=== PATIENT | female | born 1975 | race Caucasian/White ===

== ENCOUNTER 2021-02-08 17:53 | Emergency (ER) | payer MEDICARE, MEDICAID, SELFPAY ==
--- NOTE | 2021-02-08 17:55 | ED.SKABFB ---
HPI - Skin/Abscess/Foreign Bdy General Chief complaint: Skin/Abscess/Foreign Body Stated complaint: facial bumps Time Seen by Provider: 02/08/21 18:23 Source: patient and RN notes reviewed Mode of arrival: ambulatory Limitations: no limitations History of Present Illness HPI narrative: 45-year-old female presents with concern for infected acne. She has a history of acne, has a history of staph infections related to her acne. Reports she picks at her wounds. Reports she sees a health administrator, has been on several courses of Bactrim this past year. Reports she last took Bactrim 2 months ago. Reports several days ago she noticed 3 spots on her face that are red, tender, swollen with purulent drainage. She denies any systematic symptoms such as fever, malaise, body aches. MD complaint: rash Related Data Home Medications Medication Instructions Recorded Confirmed alprazolam 2 mg PO BID 10/15/19 02/08/21 baclofen 10 mg PO BID PRN 10/15/19 02/08/21 sertraline 100 mg PO EVERY OTHER DAY 10/15/19 02/08/21 acetaminophen-codeine 2 tablet PO BID 02/08/21 02/08/21 clindamycin phosphate 1 applic TOPICAL BID 02/08/21 02/08/21 phentermine 37.5 mg PO DAILY 02/08/21 02/08/21 sertraline 150 mg PO EVERY OTHER DAY 02/08/21 02/08/21 silver sulfadiazine 1 applic TOPICAL BID PRN 02/08/21 02/08/21 spironolactone 150 mg PO BID 02/08/21 02/08/21 Allergies Allergy/AdvReac Type Severity Reaction Status Date / Time levofloxacin Allergy Unknown Rash Verified 02/08/21 18:20 Penicillins Allergy Unknown Hives Verified 02/08/21 18:20 Review of Systems Review of Systems: Narrative: CONSTITUTIONAL: Denies malaise, chills, sweats, or fever. EYES: Denies visual changes, redness, or discharge. ENT: Denies swollen lips, swollen tongue CARDIOVASCULAR: Denies chest pain, palpitations, or edema. RESPIRATORY: Denies cough or dyspnea. SKIN: Reports infected acne pustules on her face MUSCULOSKELETAL: Denies myalgia. All systems reviewed & are unremarkable except as noted in HPI and below PMFSH Past Medical History Medical History (Updated 02/08/21 @ 18:36 by Eda Christensen NP) Anxiety Arthritis Asthma Depression Herpes Social History Social History (Updated 10/15/19 @ 20:09 by MICHAEL Damon) Smoking status: Current every day smoker Alcohol intake: never Substance use: never Gender identity (if verbalized by the patient): Female Comments At time of signature, agree with nursing past medical, surgical, social and family history. There is no relevant family history pertinent to the presenting complaint Exam Narrative: Exam Narrative: GENERAL: Well-appearing, well-nourished, and in no acute distress. HEAD: Normocephalic, atraumatic. EYES: PERRLA, conjunctivae clear, and EOMI. ENT: Mucous membranes moist. Oropharynx without edema, erythema or lesions. NECK: Supple. No lymphadenopathy CHEST: Clear to auscultation. No respiratory distress. HEART: Regular rate and rhythm. SKIN: Warm, dry. 3 discrete patches of scaly edematous erythema, patient has make-up over wounds. Mild induration, edema surrounding wounds less than 1.5 cm each. Tender to touch NEURO: Alert and oriented x3. PSYCH: Normal mood and affect Course Course Emergency Course: Patient is aware of diagnosis, understands and agrees to treatment plan. Anticipatory guidance given. Patient agrees to follow-up as directed and is aware of reasons to seek care at the emergency department. Portions of this record may have been created with voice recognition software Vital Signs Vital signs: Vital Signs Temperature 97.8 F 02/08/21 18:25 Pulse Rate 98 02/08/21 18:25 Respiratory Rate 16 02/08/21 18:25 Blood Pressure 117/61 02/08/21 18:25 Pulse Oximetry 100 02/08/21 18:25 Temperature 97.8 F 02/08/21 18:25 Pulse Rate 98 02/08/21 18:25 Respiratory Rate 16 02/08/21 18:25 Blood Pressure 117/61 02/08/21 18:25 Pulse Oximetry 100 02/08/21 18:2
[2021-02-08 18:25] VITALS: BP 117/61; PULSE 98; RESP 16; TEMP 36.6; O2SAT 100
== END 2021-02-08 18:47 | disposition home or self-care (01) ==
PROVIDERS: Emergency Provider Nurse Practitioner
DX: L08.9 Local infection of the skin and subcutaneous tissue, unspecified (principal); B96.89 Other specified bacterial agents as the cause of diseases classified elsewhere; Z86.14 Personal history of Methicillin resistant Staphylococcus aureus infection; F41.9 Anxiety disorder, unspecified; M19.90 Unspecified osteoarthritis, unspecified site; J45.909 Unspecified asthma, uncomplicated; F32.9 Major depressive disorder, single episode, unspecified; F17.200 Nicotine dependence, unspecified, uncomplicated
CPT/HCPCS: 99213; G0463

== ENCOUNTER 2021-11-15 13:37 | Emergency (ER) | payer MEDICARE, MEDICAID, SELFPAY ==
[2021-11-15 13:54] VITALS: BP 107/76; PULSE 103; RESP 16; TEMP 36.5; O2SAT 98
--- NOTE | 2021-11-15 14:15 | ED.WOUNDLAC ---
HPI - Wound/Laceration General Chief Complaint: Skin/Abscess/Foreign Body Stated Complaint: left leg pain/facial acne Time Seen by Provider: 11/15/21 14:05 Source: patient and RN notes reviewed Mode of arrival: ambulatory Limitations: no limitations Related Data Allergies Allergy/AdvReac Type Severity Reaction Status Date / Time levofloxacin Allergy Unknown Rash Verified 11/15/21 13:43 Penicillins Allergy Unknown Hives Verified 11/15/21 13:43 [facility] Past Medical History Medical History (Updated 11/15/21 @ 14:20 by Roselia Blanco, MICHAEL, ) Anxiety Arthritis Asthma Depression Herpes Social History Social History (Updated 10/15/19 @ 20:09 by Audrey Spencer [facility]) Smoking status: Current every day smoker Alcohol intake: never Substance use: never Gender identity (if verbalized by the patient): Female Exam Narrative: GENERAL: Well-appearing, well-nourished, and in no acute distress. HEAD: Normocephalic, atraumatic. EYES: EOMI. No redness or drainage. Conjunctivae normal. ENT: Mucous membranes pink and moist. NECK: Normal AROM. CHEST: No respiratory distress. EXTREMITIES: Normal range of motion. No edema. SKIN: Warm, dry. Capillary refill normal. Normal skin turgor. Flattened, dry abscess to the right lower jawline. No fluctuance any longer. Mildly tender to palpation. Patient has a lot of make-up on, so is difficult to tell whether or not there is any erythema. Pharmacy patient has erythematous, scattered maculopapular rash around the left ankle that is mildly tender to palpation around the posterior ankle. There is some mild edema about the ankle. Distal sensation intact. Capillary refill normal. Pedal pulse normal. Full range of motion of the ankle. NEURO: No focal deficits. Alert and oriented x3. Gait steady. PSYCH: Normal affect. No signs of depression or anxiety. Course Vital Signs Vital signs: Vital Signs Temperature 97.7 F 11/15/21 13:54 Pulse Rate 103 H 11/15/21 13:54 Respiratory Rate 16 11/15/21 13:54 Blood Pressure 107/76 11/15/21 13:54 Pulse Oximetry 98 11/15/21 13:54 Temperature 97.7 F 11/15/21 13:54 Pulse Rate 103 H 11/15/21 13:54 Respiratory Rate 16 11/15/21 13:54 Blood Pressure 107/76 11/15/21 13:54 Pulse Oximetry 98 11/15/21 13:54 Reviewed MDM - Wound/Laceration Differential Diagnosis Differential diagnosis: Likely abscess and other (Contact dermatitis, Acne, cellulitis) Critical Care Time Critical Care Time Critical Care Time: No Discharge Plan Discharge Clinical Impression: Abscess of skin or subcutaneous tissue Qualifiers: Site of cutaneous abscess: face Qualified Code(s): L02.01 - Cutaneous abscess of face Cellulitis Qualifiers: Site of cellulitis: face Qualified Code(s): L03.211 - Cellulitis of face Contact dermatitis Qualifiers: Contact dermatitis type: unspecified Contact dermatitis trigger: unspecified trigger Qualified Code(s): L25.9 - Unspecified contact dermatitis, unspecified cause Patient Disposition: Home, Self-Care Condition: Stable Instructions: Antibiotic Form, Contact Dermatitis (DC), Cellulitis (ED), Abscess (ED) Additional Instructions: Take the Bactrim as prescribed until gone. Take Benadryl at home for the rash on your ankle. Follow-up with your doctor in 3 to 4 days if symptoms are not improving. Patient Language: Georgian Prescriptions: New sulfamethoxazole-trimethoprim [Bactrim DS] 800-160 mg tablet 1 tablet PO Q12H 10 Days Qty: 20 RF: 0 Follow-up/Referrals: UNKNOWN,DOCTOR [Primary Care Provider] - Time of Disposition: 14:20
== END 2021-11-15 14:25 | disposition home or self-care (01) ==
PROVIDERS: Emergency Provider Nurse Practitioner
DX: L02.01 Cutaneous abscess of face (principal); L03.211 Cellulitis of face; L25.9 Unspecified contact dermatitis, unspecified cause; F17.200 Nicotine dependence, unspecified, uncomplicated; M19.90 Unspecified osteoarthritis, unspecified site; J45.909 Unspecified asthma, uncomplicated
CPT/HCPCS: 99213; G0463

== ENCOUNTER 2022-03-28 13:56 | Emergency (ER) | payer MEDICARE, MEDICAID, SELFPAY ==
[2022-03-28 14:07] VITALS: BP 126/82; PULSE 101; RESP 16; TEMP 37.3; O2SAT 98
--- NOTE | 2022-03-28 14:22 | ED.DENTAL ---
HPI - Dental/Oral General Chief complaint: Dental/Oral Stated complaint: blisters in mouth Time Seen by Provider: 03/28/22 14:22 Source: patient Mode of arrival: ambulatory Limitations: no limitations Related Data Allergies Allergy/AdvReac Type Severity Reaction Status Date / Time levofloxacin Allergy Unknown Rash Verified 03/28/22 14:22 Penicillins Allergy Unknown Hives Verified 03/28/22 14:22 [facility] Past Medical History Medical History (Updated 11/16/21 @ 00:00 by Luci Kamara) Anxiety Arthritis Asthma Depression Herpes Social History Social History (Updated 10/15/19 @ 20:09 by Audrey Spencer, [employer]) Smoking status: Current every day smoker Alcohol intake: never Substance use: never Gender identity (if verbalized by the patient): Female Course Vital Signs Vital signs: Vital Signs Temperature 37.3 C 03/28/22 14:07 Pulse Rate 101 H 03/28/22 14:07 Respiratory Rate 16 03/28/22 14:07 Blood Pressure 126/82 03/28/22 14:07 Pulse Oximetry 98 03/28/22 14:07 Temperature 37.3 C 03/28/22 14:07 Pulse Rate 101 H 03/28/22 14:07 Respiratory Rate 16 03/28/22 14:07 Blood Pressure 126/82 03/28/22 14:07 Pulse Oximetry 98 03/28/22 14:07
--- NOTE | 2022-03-28 14:33 | ED.SKABFB ---
HPI - Skin/Abscess/Foreign Bdy General Chief complaint: Skin/Abscess/Foreign Body Stated complaint: blisters in mouth Time Seen by Provider: 03/28/22 14:22 Source: patient Mode of arrival: ambulatory Limitations: no limitations History of Present Illness HPI narrative: 46-year-old female presents with complaint of itchy red bumps to back of neck and bilateral lower legs. Reports history of staph infection multiple times. States yesterday 2 spots on the back of her neck blistered and she was able to pop them open to drain. Denies fever chills. All systems reviewed and negative except as noted above. Related Data Home Medications Medication Instructions Recorded Confirmed valacyclovir 500 mg PO DAILY 03/28/22 03/28/22 Allergies Allergy/AdvReac Type Severity Reaction Status Date / Time levofloxacin Allergy Unknown Rash Verified 03/28/22 14:22 Penicillins Allergy Unknown Hives Verified 03/28/22 14:22 Review of Systems Review of Systems: CONSTITUTIONAL: Denies fever, chills, or sweats. EYES: Denies visual changes, redness, or discharge. ENT: Denies rhinorrhea, congestion, sore throat, or otalgia. CARDIOVASCULAR: Denies chest pain, palpitations, or edema. RESPIRATORY: Denies cough or dyspnea. GASTROINTESTINAL: Denies abdominal pain, nausea, vomiting, or diarrhea. GENITOURINARY: Denies dysuria or hematuria. SKIN: Reports itchy rash. MUSCULOSKELETAL: Denies back pain, joint pain, or myalgia. NEUROLOGIC: Denies headache, numbness, or weakness. PSYCHIATRIC: Denies anxiety or depression. All other systems reviewed are negative, except as documented in HPI. [facility] Past Medical History Medical History (Updated 03/28/22 @ 14:38 by Carrol Rodriguez NP) Anxiety Arthritis Asthma Depression Herpes Social History Social History (Updated 10/15/19 @ 20:09 by Audrey Spencer, [employer]) Smoking status: Current every day smoker Alcohol intake: never Substance use: never Gender identity (if verbalized by the patient): Female Comments At time of signature, agree with nursing past medical, surgical, social and family history. There is no relevant family history pertinent to the presenting complaint. Exam Narrative: GENERAL: This is a well-nourished, well-developed patient, in no apparent distress. HEAD: normocephalic, atraumatic. EYES: PERRL. Sclera clear/white. Vision is grossly intact. EARS: External ears normal NOSE: External nose normal NECK: Neck supple, non-tender without lymphadenopathy, masses or thyromegaly. CARDIOVASCULAR: Regular rate and rhythm without murmurs, gallops, or rubs. RESPIRATORY: Clear to auscultation. Breath sounds equal bilaterally. No wheezes, rales, or rhonchi. SKIN: warm, Dry, good texture and turgor. Multiple erythematous skin lesions to bilateral lower legs with scabbing and swelling. No fluctuance or drainage. Similar lesions, 2 or 3, to posterior neck. NEURO: awake, alert, and oriented to person, place and time. There were no obvious focal neurologic abnormalities. EXTREMITIES: Normal range of motion to all extremities. Course Course Level of Care: Express Care Visit Vital Signs Vital signs: Vital Signs Temperature 37.3 C 03/28/22 14:07 Pulse Rate 101 H 03/28/22 14:07 Respiratory Rate 16 03/28/22 14:07 Blood Pressure 126/82 03/28/22 14:07 Pulse Oximetry 98 03/28/22 14:07 Temperature 37.3 C 03/28/22 14:07 Pulse Rate 101 H 03/28/22 14:07 Respiratory Rate 16 03/28/22 14:07 Blood Pressure 126/82 03/28/22 14:07 Pulse Oximetry 98 03/28/22 14:07 Reviewed MDM - Skin/Abscess/Foreign Bdy MDM Narrative Medical decision making narrative: We will treat for staph infection due to multiple erythematous skin lesions and patient's past medical history of staph infection. Patient is aware of diagnosis, understands and agrees to treatment plan. Anticipatory guidance given. Patient agrees to follow-up as directed and is aware of reasons to seek c
== END 2022-03-28 14:40 | disposition home or self-care (01) ==
PROVIDERS: Emergency Provider Nurse Practitioner Family
DX: L08.9 Local infection of the skin and subcutaneous tissue, unspecified (principal); B95.8 Unspecified staphylococcus as the cause of diseases classified elsewhere; F17.200 Nicotine dependence, unspecified, uncomplicated
CPT/HCPCS: 99213; G0463

== ENCOUNTER 2022-04-26 16:38 | Emergency (ER) | payer MEDICARE, MEDICAID, SELFPAY ==
[2022-04-26 16:49] VITALS: BP 103/72; PULSE 72; RESP 20; TEMP 36.3; O2SAT 100
--- NOTE | 2022-04-26 17:07 | ED.SKABFB ---
HPI - Skin/Abscess/Foreign Bdy General Chief complaint: Skin/Abscess/Foreign Body Stated complaint: Staff Infection Time Seen by Provider: 04/26/22 17:08 Source: patient and RN notes reviewed Mode of arrival: ambulatory Limitations: no limitations History of Present Illness HPI narrative: 46-year-[facility] finishing her round of Bactrim for her staph infections. Still concerned over open red round lesions 1 on her back on her spine is swollen and warm to touch, patient reports pus draining from it. Also states the areas on her face are not healing. Not follow-up with dermatology due to cost. Related Data Home Medications Medication Instructions Recorded Confirmed valacyclovir 500 mg tablet 500 mg PO DAILY 03/28/22 04/26/22 Allergies Allergy/AdvReac Type Severity Reaction Status Date / Time levofloxacin AdvReac Mild Rash Verified 04/26/22 16:46 Penicillins AdvReac Mild Hives Verified 04/26/22 16:46 Review of Systems Review of Systems: All systems reviewed & are unremarkable except as noted in HPI and below Constitutional: Constitutional: Reports no additional constitutional complaints, Denies chills and Denies fever(s) Eyes: Eyes: Reports no additional eye complaints ENT: Reports system reviewed and no additional complaints, except as documented Cardiovascular: Cardiovascular: Reports no additional cardiovascular complaints Respiratory: Respiratory: Reports no additional respiratory complaints Gastrointestinal: Gastrointestinal: Reports no additional gastrointestinal complaints Musculoskeletal: Musculoskeletal: Reports no additional musculoskeletal complaints Integumentary/Breasts: Skin/Breast: Reports as per HPI and Reports erythema Neurologic: Reports system reviewed and no additional complaints, except as documented Psychiatric: Psychiatric: Reports no additional psychiatric complaints Allergic/Immunologic: Allergic/Immunologic: Reports no additional allergic/immunologic complaints [facility] Past Medical History Medical History Anxiety Arthritis Asthma Depression Herpes Social History Social History (Updated 04/26/22 @ 17:13 by Eda Chicas APRN) Smoking packs per day: 1 Smoking cigarettes per day: 20.0 Smoking status: Current every day smoker Alcohol intake: never Substance use: never Substance use type: marijuana Gender identity (if verbalized by the patient): Female Comments At the time of my signature, I reviewed and agree with the nursing past medical, surgical, social, and family history. There is no relevant family history pertinent to the patient complaint. Exam Const: General: no acute distress, alert and ill appearing chronically Nutritional Appearance: thin Orientation/consciousness: patient oriented x3 Limitations: no limitations HENMT: Head: normal to inspection Ears: external ears normal General nose exam: Normal external nose present Mouth: Yes moist mucous membranes Teeth and gingiva: poor dentition Eyes: Pupils: Equal, round and reactive pupils present Neck: Neck: normal visual inspection, no lymphadenopathy and no meningeal signs Chest: Chest palpation & inspection: normal inspection of the chest Resp: Effort & Inspection: normal respiratory effort and no use of accessory muscles Auscultation: clear to auscultation bilaterally, no crackles, no rales, no rhonchi and no wheezes Cardio: Rate: regular rate Rhythm: regular rhythm GI: GI Palp: Yes Soft to palpation and No Tenderness to palpation present (GI) : General: Yes no CVA tenderness Back/Spine/Pelvis: Back: no CVA tenderness Skin: General skin exam: normal color Rashes: no rashes Other: Multiple scabbed over areas without redness to the face. 7 open areas to the upper back/neck area, 1 over her spine, T1 1.5 centimeters in diameter, raised and warm. All areas the scabs have been off. Neuro: Ge
== END 2022-04-26 17:15 | disposition home or self-care (01) ==
PROVIDERS: Emergency Provider Nurse Practitioner
DX: L03.312 Cellulitis of back [any part except buttock and flank] (principal); M19.90 Unspecified osteoarthritis, unspecified site; J45.909 Unspecified asthma, uncomplicated; F41.9 Anxiety disorder, unspecified
CPT/HCPCS: 99213; G0463

== ENCOUNTER 2023-08-13 16:36 | Emergency (ER) | payer MEDICARE, MEDICAID, SELFPAY ==
[2023-08-13 17:05] VITALS: BP 111/82; PULSE 90; RESP 16; TEMP 36.5; O2SAT 98
[2023-08-13 17:07] VITALS: BP 111/82; PULSE 90; RESP 16; TEMP 36.5; O2SAT 98
--- NOTE | 2023-08-13 17:17 | ED.GENADULT ---
HPI - General Adult General Chief complaint: Wound/Laceration Stated complaint: Rash/Vomiting/Headache Time Seen by Provider: 08/13/23 17:18 Source: patient, RN notes reviewed and old records reviewed Mode of arrival: ambulatory Limitations: no limitations History of Present Illness HPI narrative: 47-year-old female presents to the [facility] with skin complaints. Patient has multiple scabbed over and open areas, currently not draining to her face, chest and bilateral arms. Area between breasts measure 1-1/2 x 1/2 cm. No fluctuance area, warm to touch. Patient states that she does pick her skin. Has a history of MRSA. Related Data Home Medications Medication Instructions Recorded Confirmed alprazolam 0.5 mg tablet mg 08/13/23 duloxetine 30 mg capsule,delayed mg PO 08/13/23 release famciclovir 250 mg tablet mg 08/13/23 08/13/23 medroxyprogesterone 150 mg/mL mg IM 08/13/23 intramuscular syringe spironolactone 100 mg tablet mg 08/13/23 Allergies Allergy/AdvReac Type Severity Reaction Status Date / Time levofloxacin AdvReac Mild Rash Verified 08/13/23 17:06 Penicillins AdvReac Mild Hives Verified 08/13/23 17:06 Review of Systems Review of Systems: All systems reviewed & are unremarkable except as noted in HPI and below Constitutional: Constitutional: Reports no additional constitutional complaints Eyes: Eyes: Reports no additional eye complaints ENT: Reports system reviewed and no additional complaints, except as documented Cardiovascular: Cardiovascular: Reports no additional cardiovascular complaints, Denies chest pain and Denies dyspnea Respiratory: Respiratory: Reports no additional respiratory complaints, Denies chest congestion, Denies cough and Denies dyspnea Gastrointestinal: Gastrointestinal: Reports no additional gastrointestinal complaints, Denies abdominal pain, Denies nausea and Denies vomiting Musculoskeletal: Musculoskeletal: Reports no additional musculoskeletal complaints Integumentary/Breasts: Skin/Breast: Reports as per HPI Neurologic: Reports system reviewed and no additional complaints, except as documented Psychiatric: Psychiatric: Reports no additional psychiatric complaints Allergic/Immunologic: Allergic/Immunologic: Reports no additional allergic/immunologic complaints [facility] Past Medical History Medical History Anxiety Arthritis Asthma Depression Herpes Social History Social History (Reviewed 08/13/23 @ 21:36 by KIMBER Funk Smoking packs per day: 1 Smoking cigarettes per day: 20.0 Smoking status: Current every day smoker Alcohol intake: never Substance use: never Substance use type: marijuana Gender identity (if verbalized by the patient): Female Comments At the time of my signature, I reviewed and agree with the nursing past medical, surgical, social, and family history. There is no relevant family history pertinent to the patient complaint. Exam Const: General: cooperative, healthy appearing, comfortable, no acute distress, well developed, alert and well nourished Nutritional Appearance: well nourished Orientation/consciousness: patient oriented x3 Limitations: no limitations HENMT: Head: normal to inspection Ears: hearing grossly normal bilaterally and external ears normal Face/Nose/Sinus: Normal external nose present, Normal nares present, Normal nasal mucous membranes and turbinates present, normal facial exam and face symmetric Face and sinus: normal facial exam and face symmetric Mouth: Yes Normal oral and palatal mucosa present, Yes lip normal and Yes moist mucous membranes Eyes: General: appearance normal, both eyes and all related structures Alignment and Position: alignment normal Periorbital: periorbital findings normal Pupils: Equal, round and reactive pupils present EOM: EOMs intact bilaterally Neck: Neck: normal visual inspection, full ROM, no lymphadenopathy a
== END 2023-08-13 17:37 | disposition home or self-care (01) ==
PROVIDERS: Emergency Provider Nurse Practitioner
DX: L03.313 Cellulitis of chest wall (principal); M19.90 Unspecified osteoarthritis, unspecified site; J45.909 Unspecified asthma, uncomplicated; F17.210 Nicotine dependence, cigarettes, uncomplicated; Z86.14 Personal history of Methicillin resistant Staphylococcus aureus infection
CPT/HCPCS: 99213; G0463

== ENCOUNTER 2024-11-29 17:42 | Emergency (ER) | payer MEDICARE, MEDICAID, SELFPAY ==
--- NOTE | 2024-11-29 17:44 | ED.SKABFB ---
HPI - Skin/Abscess/Foreign Bdy General Chief complaint: Skin/Abscess/Foreign Body Stated complaint: Rash Time Seen by Provider: 11/29/24 18:09 Source: patient and RN notes reviewed Mode of arrival: ambulatory Limitations: no limitations History of Present Illness HPI narrative: 49-year-old female presents with concern for infected cystic acne. Reports spots on her face have become red, inflamed has purulent drainage. She denies fever, aches, chills, sweats. Reports history of similar problems in the past. MD complaint: rash Related Data Home Medications ?Medication ?Instructions ?Recorded ?Confirmed ?Last Taken ?Type alprazolam 0.5 mg tablet mg 08/13/23 Unknown History duloxetine 30 mg capsule,delayed mg PO 08/13/23 Unknown History release famciclovir 250 mg tablet mg 08/13/23 08/13/23 Unknown History medroxyprogesterone 150 mg/mL mg IM 08/13/23 Unknown History intramuscular syringe spironolactone 100 mg tablet mg 08/13/23 Unknown History Allergies Allergy/AdvReac Type Severity Reaction Status Date / Time levofloxacin AdvReac Mild Rash Verified 11/29/24 17:44 Penicillins AdvReac Mild Hives Verified 11/29/24 17:44 Review of Systems Review of Systems: CONSTITUTIONAL: Denies malaise, chills, sweats, or fever. EYES: Denies redness, or discharge. ENT: Denies rhinorrhea, congestion, swollen lips, swollen tongue CARDIOVASCULAR: Denies chest pain, palpitations, or edema. RESPIRATORY: Denies cough or dyspnea. GASTROINTESTINAL: Denies abdominal pain, nausea, vomiting SKIN: Reports infected cystic acne MUSCULOSKELETAL: Denies joint pain or myalgia. NEUROLOGIC: Denies headache. All systems reviewed & are unremarkable except as noted in HPI and below PMFSH Past Medical History Medical History Anxiety Arthritis Asthma Depression Herpes Social History Social History Smoking packs per day: 1 Smoking cigarettes per day: 20.0 Smoking status: Current every day smoker Alcohol intake: never Substance use: never Substance use type: marijuana Gender identity (if verbalized by the patient): Female Comments At time of signature, agree with nursing past medical, surgical, social and family history. There is no relevant family history pertinent to the presenting complaint Exam Narrative: GENERAL: Well-appearing, well-nourished, and in no acute distress. HEAD: Normocephalic, atraumatic. EYES: PERRLA, conjunctivae clear, and EOMI. ENT: Mucous membranes moist. Oropharynx without edema, erythema or lesions. NECK: Supple. No lymphadenopathy CHEST: Clear to auscultation. No respiratory distress. HEART: Regular rate and rhythm. SKIN: Warm, dry. Patches of erythematous to raise papules noted to the face with no purulent drainage NEURO: Alert and oriented x3. PSYCH: Normal mood and affect Course Course Emergency Course: Patient is aware of diagnosis, understands and agrees to treatment plan. Anticipatory guidance given. Patient agrees to follow-up as directed and is aware of reasons to seek care at the emergency department. Portions of this record may have been created with voice recognition software Level of Care: Express Care Visit Vital Signs Vital signs: Reviewed. MDM - Skin/Abscess/Foreign Bdy MDM Narrative Medical decision making narrative: Does not appear at this time to be erythema multiforme, bullous, SJS, TEN; no evidence at this time to suggest RMSF, endocarditis or Lyme disease; patient looks well, nontoxic and is tolerating oral intake; no neurologic signs or symptoms; no headache, photophobia or neck pain; afebrile; appropriate for initial outpatient treatment; discussed the importance of follow-up, patient agrees; question, viral exanthema, contact dermatitis, allergic dermatitis, eczema, urticaria, [ xx ]. No soft palate or uvula edema, no tongue, lip edema or other mucosal involvement, no respiratory compromise, no stridor, no wheezing, no wheezing, no history of syncope, no hypotension, no nausea, vomiting, or diarrhea. Instructed patient to go to nearest ER immediately for any worsening symptoms including but not limited to: fever, spreading rash, pain, sore throat, headache, dizziness, chest pain, trouble breathing, or any symptoms concerning to the patient. Critical Care Time Critical Care Time Critical Care Time: No Discharge Plan Discharge Clinical Impression: Bacterial skin infection Patient Disposition: Home, Self-Care Condition: Stable Instructions: Antibiotic Form, General Patient Instructions Additional Instructions: Please follow up with your Primary Care Doctor for further evaluation. Apply moist heat 3-4 times daily for 10-15 minutes. Take Motrin 600mg every 8 hours with food for pain. Please take Antibiotics as directed. If you experience any worsening redness, swelling, streaking (red lines), fever or chills please go to the ER Patient Language: [place] Island[place] Prescriptions: New clindamycin HCl 300 mg capsule 300 mg PO Q8H 7 Days Qty: 21 0RF No Action spironolactone 100 mg tablet alprazolam 0.5 mg tablet famciclovir 250 mg tablet medroxyprogesterone 150 mg/mL syringe IM duloxetine 30 mg capsule,delayed release(DR/EC) PO Follow-up/Referrals: UNKNOWN,DOCTOR [Non-Staff] - Time of Disposition: 18:08
[2024-11-29 17:50] VITALS: BP 130/75; PULSE 102; RESP 16; TEMP 36.9; O2SAT 100
== END 2024-11-29 18:15 | disposition home or self-care (01) ==
PROVIDERS: Emergency Provider Nurse Practitioner
DX: L08.89 Other specified local infections of the skin and subcutaneous tissue (principal); B96.89 Other specified bacterial agents as the cause of diseases classified elsewhere; F17.210 Nicotine dependence, cigarettes, uncomplicated; J45.909 Unspecified asthma, uncomplicated; M19.90 Unspecified osteoarthritis, unspecified site
CPT/HCPCS: 99213; G0463